=== PATIENT | female | born 1965 | race African-American/Black ===

== ENCOUNTER → 2016-07-17 | Outpatient (CLI) | payer OTHER ==
[~2016-07-17] MED LIST: AUGMENTIN875 MG PO; CALCIUM 500 +1 EAC5 PO; DOXYCYCLINE HY100 MG PO; LEVAQUIN250 MG PO; LEVO-T100 MCG PO; LEVOTHYROXINE75 MCG PO; METHYLDOPA250 MG PO; PROTONIX40 MG PO; VITAMIN D32000 UNI1 PO; VITAMIN D50000 UNIT PO; ZANTAC75 MG PO; ZESTORETIC 20-1 EAC1 PO; ZESTRIL,PRINIVI10 MG PO
== END | disposition home or self-care (01) ==
LOC: NUC 07-16 11:00
DX: R94.4 Abnormal results of kidney function studies (principal)
CPT/HCPCS: 78707; A9562

== ENCOUNTER 2016-10-25 15:20 | Emergency (ER) | payer OTHER ==
[~2016-10-25] VITALS: Ht 160 cm; Wt 94.3 kg
[2016-10-25 15:54] LABS: HEMATOCRIT 39.4 % (36.0-46.0); MCH 30.4 PG (29.0-34.0); MCHC 33.8 G/DL (30.0-36.0); MCV 90.2 FL (83-99); MEAN PLAT.VOLUME 11.2 uM^3 (9.5-12.4); PLATELET COUNT 236 K/uL (156-360); RBC DIS.WIDTH-CV 13.1 % (11.8-14.6); RBC DIS.WIDTH-SD 43.1 % (39-53); RED BLOOD COUNT 4.37 M/uL (3.80-5.20); WHITE BLOOD COUNT 8.3 K/uL (4.1-10.2)
[2016-10-25 16:03] LABS: CHLORIDE 104 mEq/L (99-109); POTASSIUM 3.1 mEq/L (3.7-5.4); SODIUM 141 mEq/L (136-147)
[2016-10-25 16:05] LABS: GLUCOSE 123 mg/dL (70-99)
[2016-10-25 16:07] LABS: ANION GAP 10 MEQ/L (2-14); TOTAL BILIRUBIN 0.3 mg/dL (0.0-1.0)
[2016-10-25 16:09] LABS: ALKALINE PHOSPHATASE 57 IU/L (3-129); GFR ESTIMATE (CALCULATED) > 59 mL/min/
[2016-10-25 16:10] LABS: UREA NITROGEN (BUN) 18 mg/dL (9-23)
[2016-10-25 16:18] LABS: QUANTITATIVE HCG < 4.0 MIU/ML
[2016-10-25 17:22] LABS: TROP-I INTERPRETATION NEGATIVE; TROPONIN-I < 0.01 ng/mL (0.0-0.30)
[2016-10-25 18:02] LABS: TROP-I INTERPRETATION NEGATIVE; TROPONIN-I < 0.01 ng/mL (0.0-0.30)
[2016-10-25] MEDS ORDERED: LO-DOSE ASPIRIN81 M2 PO (18:18)
[2016-10-25] MEDS ORDERED: FLEXERIL5 MG PO (18:18)
[2016-10-25 18:27] VITALS: BP 100/73
== END 2016-10-25 18:27 | disposition home or self-care (01) ==
LOC: EXP 15:20 → EME 15:20 → EXP 18:27
PROVIDERS: Physician Assistant
DX: R07.9 Chest pain, unspecified (principal); E87.6 Hypokalemia; I10 Essential (primary) hypertension; E03.9 Hypothyroidism, unspecified; Z87.891 Personal history of nicotine dependence
CPT/HCPCS: 71020; 80053; 84443; 84484; 84702; 85027; 93005; 99281; 99284